=== PATIENT | female | born 1970 | race Caucasian/White ===

== ENCOUNTER 2023-05-10 08:11 | Emergency (ER) | payer OTHER ==
[2023-05-10 08:18] VITALS: BP 119/60; PULSE 77; RESP 18; TEMP 98; BMI 23.4
[2023-05-10] MEDS ORDERED: METHOCARBAMOL 750 MG TABLET PO ONE (08:30)
[2023-05-10] MEDS ORDERED: KETOROLAC TROMETHAMINE 30 MG/1 ML VIAL IM ONE (08:30)
[2023-05-10] MEDS ORDERED: LIDOCAINE 5% TOPICAL PATCH TP ONE (08:30)
[2023-05-10] MEDS ORDERED: ACETAMINOPHEN 500 MG TABLET (FP) PO ONE (08:30)
[2023-05-10] MEDS ORDERED: ACETAMINOPHEN 500 MG TABLET (FP) ONE (08:33)
[2023-05-10] MEDS ORDERED: KETOROLAC TROMETHAMINE 30 MG/1 ML VIAL ONE (08:33)
[2023-05-10] MEDS ORDERED: METHOCARBAMOL 500 MG TABLET ONE (08:33)
[2023-05-10] MEDS ORDERED: LIDOCAINE 4% PATCH TP ONE (08:34)
[2023-05-10] MEDS ORDERED: LIDOCAINE PATCH REMOVAL MC ONE (22:00)
== END 2023-05-10 10:49 | disposition home or self-care (01) ==
LOC: JERFT 08:11
PROC: 3E0233Z Introduction of Anti-inflammatory into Muscle, Percutaneous Approach (ICD-10-PCS; principal; 2023-05-10)
DX: M54.42 Lumbago with sciatica, left side (principal)
CPT/HCPCS: 72100-TC-FY; 99284-25